=== PATIENT | female | born 1995 | race American Indian/Alaskan Native ===

== ENCOUNTER 2017-01-12 14:25 | Outpatient (CLI) | payer OTHER, MEDICAID ==
[2017-01-12 15:22] LABS: Hematocrit 34.1 % (30.3-42.9); Mean Corpuscular HGB Conc 32 % (30-34); Mean Corpuscular Hemoglobin 29 pg (28-32); Mean Corpuscular Volume 90 fl (79-97); Platelet Count 311 K/mm3 (140-440); Red Blood Count 3.79 M/mm3 (3.65-5.03); Red Cell Distribution Width 15.8 % (13.2-15.2); White Blood Count 12.2 K/mm3 (4.5-11.0)
[2017-01-12 15:32] LABS: Bilirubin,Urine NEG (Negative); Blood,Urine NEG (Negative); Ketones,Urine NEG (Negative); Leukocyte Esterase,Urine SM (Negative); Nitrite,Urine NEG (Negative); Protein,Urine <15 mg/dL mg/dL (Negative); Urobilinogen,Urine < 2.0 mg/dL (<2.0)
[2017-01-12 15:34] LABS: Alanine Aminotransferase 15 units/L (7-56); Lactate Dehydrogenase 211 units/L (91-180); Uric Acid 3.6 mg/dL (3.5-7.6)
--- NOTE | 2017-01-12 16:42 | Ultrasound Report ---
BIOPHYSICAL PROFILE: INDICATION: KEANU. COMPARISON: None similar. TECHNIQUE: Transabdominal ultrasound with Doppler interrogation. 2 - breathing movements 2 - movements 2 - posture and tone 2 - Qualitative amniotic fluid volume 8 - TOTAL SCORE OF POSSIBLE 8 Heart Rate (bpm) 143
--- NOTE | 2017-01-12 16:43 | Ultrasound Report ---
OB LIMITED INDICATION: KEANU. COMPARISON: None similar. TECHNIQUE: Transabdominal grayscale ultrasound with Doppler interrogation. Gestation: [place] Position: Cephalic Amniotic Fluid: WNL (7-24 cm) KEANU = 10.4 cm Heart Rate: 143 BPM
[2017-01-12 17:54] VITALS: BP 134/81
== END 2017-01-12 18:04 | disposition home or self-care (01) ==
LOC: TRG 14:25
PROVIDERS: ATTEND Obstetrics & Gynecology
DX: O47.1 False labor at or after 37 completed weeks of gestation (principal); Z3A.37 37 weeks gestation of pregnancy
CPT/HCPCS: 36415; 59025; 76815; 76819; 81001; 82565; 83615; 84450; 84460; 84550; 85027

== ENCOUNTER 2017-01-25 15:25 | Outpatient (CLI) | payer OTHER, MEDICAID ==
[2017-01-25] MEDS ORDERED: LACTATED RINGERS 1,000 ML IV SCH (16:00)
[2017-01-25 17:41] VITALS: BP 135/82
--- NOTE | 2017-01-26 08:06 | Ultrasound Report ---
ULTRASOUND BIOPHYSICAL PROFILE: History: Oligohydramnios Technique: Transabdominal ultrasound with Doppler interrogation. 2 - breathing movements 2 - movements 2 - posture and tone 2 - Qualitative amniotic fluid volume 8 - TOTAL SCORE OF POSSIBLE 8 Heart Rate (bpm) 145
--- NOTE | 2017-01-26 08:07 | Ultrasound Report ---
ULTRASOUND OB LIMITED History: Oligohydramnios Technique: Transabdominal ultrasound with Doppler interrogation. Gestation: Single Position: Cephalic Amniotic Fluid: Normal KEANU = 8.5 cm Heart Rate: 145 BPM
== END 2017-01-25 17:56 | disposition home or self-care (01) ==
LOC: TRG 15:25
PROVIDERS: ATTEND Obstetrics & Gynecology
DX: O41.03X0 Oligohydramnios, third trimester, not applicable or unspecified (principal); O47.1 False labor at or after 37 completed weeks of gestation; Z3A.39 39 weeks gestation of pregnancy
CPT/HCPCS: 59025; 76815; 76819; 96360; J7120